=== PATIENT | female | born 1935 | race Caucasian/White ===

== ENCOUNTER 2020-10-08 19:59 | Emergency (ER) | payer MEDICARE, BC ==
--- NOTE | 2020-10-08 20:57 | CT ---
CT OF THE BRAIN WITHOUT CONTRAST 10/08/[address] was compared with a prior study of 02/22/15. The ventricles are normal in size with no shift. No intracranial bleeding or extra-axial hematoma was seen. There is no sign of acute stroke, mass or edema. There were a few low density areas throughout the deep white matter that are most likely chronic ischemic change. The skull appears intact. The vi sible paranasal sinuses and mastoid air cells are clear. IMPRESSION: No acute intracranial findings. Preliminary report called to Dr. Cleary at 2042 on 10/08/20. POS: HOME
== END 2020-10-08 20:51 | disposition home or self-care (01) ==
LOC: BURERS 19:59
DX: S00.01XA Abrasion of scalp, initial encounter (principal); I10 Essential (primary) hypertension; Z79.899 Other long term (current) drug therapy; W18.30XA Fall on same level, unspecified, initial encounter
CPT/HCPCS: 70450